=== PATIENT | male | born 1970 | race Caucasian/White ===

== ENCOUNTER 2018-06-29 16:26 | Emergency (ER) | payer OTHER ==
[~2018-06-29] VITALS: Ht 172.7 cm; Wt 111.4 kg
[2018-06-29 16:43] VITALS: Ht 172.7 cm; Wt 111.4 kg
[2018-06-29] MEDS ORDERED: MOBIC7.5 MG PO (16:45)
[2018-06-29] MEDS ORDERED: PROZAC40 MG PO (16:45)
[2018-06-29] MEDS ORDERED: BUTALB-APAP-CA1 EACH PO (18:44)
[2018-06-29 19:00] VITALS: BP 135/75
== END 2018-06-29 19:01 | disposition home or self-care (01) ==
LOC: D.ER 16:26
DX: G43.909 Migraine, unspecified, not intractable, without status migrainosus (principal)

== ENCOUNTER 2019-06-02 19:48 | Emergency (ER) | payer OTHER ==
[~2019-06-02] VITALS: Ht 172.7 cm; Wt 115.9 kg
[~2019-06-02 19:48] MED LIST: BUTALB-APAP-CA1 EACH PO; MOBIC7.5 MG PO; PROZAC40 MG PO
[2019-06-02 19:53] VITALS: Ht 172.7 cm; Wt 115.9 kg
[2019-06-02] MEDS ORDERED: XARELTO15 MG PO (19:55)
[2019-06-02] MEDS ORDERED: NEURONTIN 300300 MG PO (19:55)
[2019-06-02 20:05] LABS: BASOPHILS 0.2 % (0-2); EOSINOPHILS 2.4 % (0-7); HEMATOCRIT 39.2 % (42.0-54.0); HEMOGLOBIN 12.9 g/dL (13.5-17.5); IMMATURE GRANULOCYTES 0.1 % (0-5); MCHC 32.9 g/dL (31.0-37.0); MCV 91.2 fL (80.0-100.0); MEAN PLATELET VOLUME 11.7 fL (7.4-10.4); MONOCYTES 6.5 % (2-11); NEUTROPHILS 73.8 % (40-80); PLATELET COUNT 146 10x3/uL (130-400); WBC 8.8 10x3/uL (4.8-10.8)
[2019-06-02 20:22] LABS: CALC OSMOLALITY 282 mosm/kg (275-300); CALCIUM 8.6 mg/dL (8.5-10.1); CARBON DIOXIDE 28.5 mmol/L (21.0-32.0); CHLORIDE - SERUM 105 mmol/L (98-107); CREATININE - SERUM 1.2 mg/dL (0.6-1.3); GLUCOSE 111 mg/dL (74-106); POTASSIUM - SERUM 3.7 mmol/L (3.5-5.1); SODIUM 141 mmol/L (136-145); UREA NITROGEN 14 mg/dL (7-18); eGFR NON AFRICAN AMERICAN 68 mL/min (90-120)
[2019-06-02 20:23] LABS: APTT 44.3 SECONDS (22.8-39.4); INR 1.19 (0.85-1.17)
[2019-06-02 20:24] LABS: D-DIMER-QUANTITATIVE 3.06 ug/mLFEU (0.20-0.54)
[2019-06-02 20:38] LABS: ALBUMIN 3.4 g/dL (3.4-5.0); ALKALINE PHOSPHATASE 83 U/L (46-116); ALT (SGPT) 33 U/L (10-68); BILIRUBIN - TOTAL 0.56 mg/dL (0.2-1.3); CKMB 0.2 U/L (0.0-3.6); CREATINE KINASE 127 UL (21-232); PROTEIN - SERUM 6.8 g/dL (6.4-8.2)
[2019-06-02 20:39] LABS: TROPONIN-I < 0.017 ng/mL (0.000-0.060)
[2019-06-03 00:26] VITALS: BP 156/88
== END 2019-06-03 00:36 | disposition other institution (70) ==
LOC: D.ER 19:48
PROVIDERS: Emergency Medicine
DX: R06.00 Dyspnea, unspecified (principal); Z86.711 Personal history of pulmonary embolism